=== PATIENT | female | born 1985 | race Caucasian/White ===

== ENCOUNTER → 2016-12-16 | Outpatient (CLI) | payer OTHER ==
--- NOTE | ~2016-12-16 | MR18 ---
[facility] A Service of [facility] RADIOLOGY TEXT RESULTS PATIENT: DURGA ACEVEDO LOCATION: [facility] : 85 UNIT #: [id number] AGE: [address]: Paddy Trevino II, MD SEX: F ORDER DR: [id number] [facility] [address]. [place], [place] [address] [id number] O MR#: [id number] Acc #: [id number] NAME: DURGA ACEVEDO : 1985 SEX: F STUDY DATE/TIME: 12/16/2016 17:33 UNIT: [facility] ROOM: STUDY DESCRIPTION: MR Brain Wo Contrast Attending Physician: Paddy Trevino II., M.D. Referring Physician: Paddy Trevino II., M.D. Ordering Physician: Paddy Trevino II., M.D. Primary Care Physician: Yandel Layne M.D. [facility] REPORT This report is preliminary unless electronic signature is present. EXAM Brain MRI without contrast, 12/16/2016 PROCEDURE Routine brain MRI without contrast COMPARISON Prior MRI 04/03/2015 HISTORY 2-year history of migraine-type headaches and history of concussion. FINDINGS There is no intracranial hemorrhage or mass or hydrocephalus. Small intraaxial right occipital cystic lesion about 11.0 x 12.0 x 13.0 mm is unchanged in appearance since the prior study. No other similar lesions are seen. Brain parenchymal signal is otherwise normal. Normal flow voids are seen in the cerebral vessels. The extracranial soft tissues are normal and bone marrow signal is normal. IMPRESSION Stable small right occipital cortical intraaxial cystic lesion. No change since the prior exam. It actually remains unchanged dating back to outside MRI of December 2013. The exam is otherwise unremarkable. Dictated by... Arik Navarro M.D. THIS IS AN ELECTRONICALLY VERIFIED REPORT Arik Navarro M.D. at 12/19/2016 4:51 PM FABIANA/brittney TD: 12/17/2016 09:58 [facility] A Service of [facility] RADIOLOGY TEXT RESULTS PATIENT: DURGA ACEVEDO LOCATION: [facility] : 85 UNIT #: [id number] AGE: [address]: Paddy Trevino II, MD SEX: F ORDER DR: CARLY #: [id number] [facility] REPORT Page 1 of 1 COPY
== END | disposition home or self-care (01) ==
LOC: CMRI 12-01 14:00
DX: R51 Headache (principal); G93.0 Cerebral cysts
CPT/HCPCS: 70551